=== PATIENT | female | born 1990 | race Caucasian/White ===

== ENCOUNTER 2020-08-01 14:55 | Inpatient (IN) | payer OTHER ==
[~2020-08-01] VITALS: Ht 172.7 cm; Wt 112.3 kg
[2020-08-06 23:30] VITALS: BP 118/65; PULSE 67
[2020-08-07] VITALS (62 sets, daily range): BP systolic 101–160; BP diastolic 61–88; PULSE 54–90; TEMP 97.8–98.5
[2020-08-07] MEDS ORDERED: PROFERRIN ES12 MG PO (07:25)
[2020-08-07] MEDS ORDERED: STOOL SOFTENER100 M2 PO (07:26)
[2020-08-07] MEDS ORDERED: PRENATAL MVI (07:26)
[2020-08-07 07:51] LABS: BASO % 0.3 % (0.0-2.0); EOS # 0.1 (0.0-0.7); EOS % 1.1 % (0-4.0); GRAN # 8.3 (1.4-6.5); GRAN % 72.4 % (42.2-75.2); HEMOGLOBIN 12.7 g/dl (12.5-16.0); LYMPH # 2.2 (1.2-3.4); LYMPH % 19.4 % (20.0-51.0); MEAN CELL VOLUME 87 fl (80.0-100.0); MEAN CORPUSCULAR HEMOGLOBIN 30 pg (27.0-31.0); MEAN CORPUSCULAR HGB CONC 34 g/dl (33.0-37.0); MEAN PLATELET VOLUME 10.3 fl (7.4-10.4); MONO # 0.7 (0.1-0.6); MONO % 6.3 % (1.7-9.3); PLATELET COUNT 249 K/mm3 (130-400); RED BLOOD COUNT 4.23 M/mm3 (4.10-5.30); REDCELL DISTRIBUTION WIDTH-CV 12.9 % (11.5-14.5)
[2020-08-07 08:02] LABS: HEMATOCRIT 36.9 % (37.0-47.0)
[2020-08-08] VITALS (14 sets, daily range): BP systolic 110–127; BP diastolic 56–83; PULSE 64–129; TEMP 97.6–98.5
[2020-08-09 03:55] VITALS: BP 117/62; PULSE 84; TEMP 97.9
[2020-08-09 06:54] VITALS: BP 106/72; PULSE 99; TEMP 97.6
[2020-08-09] MEDS ORDERED: IBU600 MG PO (08:22)
[2020-08-09 16:46] VITALS: BP 113/62; PULSE 64; TEMP 98.1
[2020-08-09 19:30] VITALS: BP 104/66; PULSE 71; TEMP 98.1
[2020-08-10 07:33] VITALS: BP 125/73; PULSE 79; TEMP 97.8
== END 2020-08-10 13:45 | disposition home or self-care (01) | DRG 806 ==
LOC: OB 14:55 → LDR 08-07 06:56 → OB 08-07 06:56
PROVIDERS: ADMIT Obstetrics & Gynecology
PROC: 10E0XZZ Delivery of Products of Conception, External Approach (ICD-10-PCS; principal; 2020-08-07)
PROC: 0KQM0ZZ Repair Perineum Muscle, Open Approach (ICD-10-PCS; 2020-08-07)
PROC: 10907ZC Drainage of Amniotic Fluid, Therapeutic from Products of Conception, Via Natural or Artificial Opening (ICD-10-PCS; 2020-08-07)
DX: O48.0 Post-term pregnancy (principal); O72.1 Other immediate postpartum hemorrhage; Z37.0 Single live birth; O70.1 Second degree perineal laceration during delivery; Z3A.40 40 weeks gestation of pregnancy
CPT/HCPCS: J2210; J2405; J2590; J2795; J7120

== ENCOUNTER → 2020-08-18 | Outpatient (CLI) | payer OTHER ==
[~2020-08-18] MED LIST: IBU600 MG PO; PRENATAL MVI; PROFERRIN ES12 MG PO; STOOL SOFTENER100 M2 PO
--- NOTE | 2020-08-18 13:42 | NUR ---
Pt, Breanna Jefferson, presents for outpatient consult with ten day old baby girl, Anselmo Jefferson, for concerns about and latching. Anselmo was born on 08/08/2019 and weighed 8#0.8oz (3650 gms). Her discharge weight was 7#7oz and pt reports Anselmo's weight at her first appointment on 08/14/2020 was 7#9oz. Today Anselmo weighs 7#15.1oz (3620 gms), for a gain of 6oz over four days. She has QS voids, stools and feeds. Recently Anselmo has been cluster feeding and has been sleeping four hours at [facility] before pt wakes her which is part of the reason for the consultation. After nursing today Anselmo has a weight gain of 1.6oz (48gms). She had a snack before coming to the office so this feeding is a little off her normal schedule but follow up consult scheduled because of lower than expected intake at this feeding. Burping positions reviewed as pt has concerns about not being able to get Anselmo burped and then worries about spit up later. POC: Continue ad adama. F/U: With Drs as scheduled, this LC Friday @ 1300. Pt verbalizes understanding, questions invited and answered.
== END ==
LOC: LAC 13:01
DX: Z39.1 Encounter for care and examination of lactating mother (principal); Z71.89 Other specified counseling

== ENCOUNTER → 2020-08-21 | Outpatient (CLI) | payer OTHER ==
--- NOTE | 2020-08-21 13:20 | NUR ---
Pt, Breanna Jefferson, presents for follow-up consult with 13 day old baby girl, Anselmo Jefferson to evaluate milk transfer and weight. Anselmo was born on 08/08/2019 and weighed 8#0.8oz (3650 gms). Three days ago she weighed 7#15.1oz (3620 gms). Pt reports Anselmo continues to have cluster feeds from 1600 to 2300, but feeds q 2-3 hours in the daytime. She tries to wake Anselmo @3 hour intervals in the noc. Today Anselmo weighs 8#3.3oz (3722 gms), for a gain of 4.2oz in three days. After Anselmo has a weight gain of 2.2oz (64 gms). POC: Pt is advised allow 4 hours intervals at [facility], continue BF ad adama in the day/evening hours. F/U: As scheduled with Dr. Shore, , prn. Questions invited and answered.
== END ==
LOC: LAC 12:57
DX: Z39.1 Encounter for care and examination of lactating mother (principal); Z71.89 Other specified counseling

== ENCOUNTER → 2021-08-21 | Outpatient (CLI) | payer BC ==
[~2021-08-21] VITALS: Ht 172.7 cm; Wt 96.3 kg
[2021-08-21 14:56] LABS: HEMATOCRIT 38.9 % (37.0-47.0); HEMOGLOBIN 13.2 g/dl (12.5-16.0); MEAN CELL VOLUME 86 fl (80.0-100.0); MEAN CORPUSCULAR HEMOGLOBIN 29 pg (27.0-31.0); MEAN CORPUSCULAR HGB CONC 34 g/dl (33.0-37.0); MEAN PLATELET VOLUME 9.3 fl (7.4-10.4); PLATELET COUNT 252 K/mm3 (130-400); REDCELL DISTRIBUTION WIDTH-CV 12.3 % (11.5-14.5)
[2021-08-21 14:59] VITALS: BP 103/66; PULSE 62; TEMP 98.2
[2021-08-21 15:11] LABS: ALBUMIN 3.9 gm/dL (3.5-5.0); BILIRUBIN,TOTAL 0.6 mg/dL (0.2-1.2); CALCIUM 9.1 mg/dL (8.4-10.2); CREATININE, serum 0.73 mg/dL (0.57-1.11); POTASSIUM 3.7 mmol/L (3.5-4.5); TOTAL PROTEIN 7.4 gm/dL (6.2-8.1)
[2021-08-21 15:31] LABS: THYROID STIMULATING HORMONE 1.805 uIU/mL (0.350-4.940)
== END ==
LOC: EUO 14:00
PROVIDERS: Obstetrics & Gynecology
DX: O21.0 Mild hyperemesis gravidarum (principal); Z3A.08 8 weeks gestation of pregnancy
CPT/HCPCS: J2405; J7030

== ENCOUNTER 2022-03-24 08:55 | Inpatient (IN) | payer BC ==
[~2022-03-24] VITALS: Ht 172.7 cm; Wt 120.0 kg
[2022-03-27] VITALS (53 sets, daily range): BP systolic 102–143; BP diastolic 55–83; PULSE 60–96; TEMP 97.7–99.6
[2022-03-27 07:30] LABS: BASO % 0.3 % (0.0-2.0); EOS # 0.2 K/mm3 (0.0-0.7); EOS % 1.4 % (0.0-4.0); GRAN # 8.5 K/mm3 (1.4-6.5); GRAN % 76.6 % (42.2-75.2); LYMPH # 1.8 K/mm3 (1.2-3.4); LYMPH % 16.1 % (20.0-51.0); MEAN CELL VOLUME 86 fl (80.0-100.0); MEAN CORPUSCULAR HEMOGLOBIN 30 pg (27-31); MEAN CORPUSCULAR HGB CONC 35 g/dl (33.0-37.0); MEAN PLATELET VOLUME 9.3 fl (7.4-10.4); MONO # 0.5 K/mm3 (0.1-0.6); MONO % 4.9 % (1.7-9.3); PLATELET COUNT 215 K/mm3 (130-400); RED BLOOD COUNT 3.68 M/mm3 (4.10-5.30); REDCELL DISTRIBUTION WIDTH-CV 13.2 % (11.5-14.5)
[2022-03-27 07:31] LABS: HEMATOCRIT 31.7 % (37.0-47.0)
[2022-03-27] MEDS ORDERED: LEXAPRO20 MG PO (07:50)
[2022-03-28] VITALS: BP 110/56; PULSE 96
[2022-03-28 01:23] VITALS: BP 106/58; PULSE 77; TEMP 98.2
[2022-03-28 04:30] VITALS: BP 106/66; PULSE 83; TEMP 98.1
[2022-03-28 09:40] VITALS: BP 116/61; PULSE 80; TEMP 98
[2022-03-28 16:10] VITALS: BP 127/74; PULSE 85; TEMP 98.1
[2022-03-28 20:30] VITALS: BP 116/71; PULSE 73; TEMP 97.8
[2022-03-29 09:00] VITALS: BP 124/64; PULSE 70; TEMP 98.1
[2022-03-29] MEDS ORDERED: IBU800 M1 PO (09:05)
== END 2022-03-29 13:20 | disposition home or self-care (01) | DRG 807 ==
LOC: LDR 08:55 → OB 03-27 06:18 → LDR 03-27 10:10 → OB 03-28 01:26
PROVIDERS: ADMIT Obstetrics & Gynecology
PROC: 10E0XZZ Delivery of Products of Conception, External Approach (ICD-10-PCS; principal; 2022-03-27)
PROC: 0KQM0ZZ Repair Perineum Muscle, Open Approach (ICD-10-PCS; 2022-03-27)
PROC: 3E033VJ Introduction of Other Hormone into Peripheral Vein, Percutaneous Approach (ICD-10-PCS; 2022-03-27)
DX: O99.344 Other mental disorders complicating childbirth (principal); Z37.0 Single live birth; O70.1 Second degree perineal laceration during delivery; F32.A Depression, unspecified; O99.284 Endocrine, nutritional and metabolic diseases complicating childbirth; E03.9 Hypothyroidism, unspecified; Z3A.39 39 weeks gestation of pregnancy; Z86.16 Personal history of COVID-19
CPT/HCPCS: J2405; J2590; J2795; J7120